=== PATIENT | male | born 1980 | race African-American/Black ===

== ENCOUNTER 2021-05-12 13:21 | Emergency (ER) | payer OTHER, SELFPAY ==
--- NOTE | ~2021-05-12 | XR_ITS ---
EXAMINATION: XR shoulder LT min 2V DATE: 05/12/2021 13:48 INDICATION: Left shoulder pain. TECHNIQUE: 4 views of left shoulder were obtained. COMPARISON: None. FINDINGS: Bone alignment is normal. No fracture. Joint spaces are normal. IMPRESSION: 1. Normal left shoulder. Reviewed, dictated and finalized at location A. IMPRESSION: 1. Normal left shoulder.
[2021-05-12 13:29] VITALS: BP 159/91; PULSE 80; RESP 18; TEMP 36.8; O2SAT 100
--- NOTE | 2021-05-12 14:08 | ED.EXTPRO ---
HPI - Extremity Problem General Chief complaint: Extremity Problem,Nontraumatic Stated complaint: left shoulder pain Time Seen by Provider: 05/12/21 13:34 Source: patient Mode of arrival: ambulatory Limitations: no limitations History of Present Illness HPI Narrative: Patient is a 41-year-old male who presents complaining of left shoulder pain. Patient reports shoulder pain has been increasing over the past week. 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 He denies numbness or tingling to arm, denies chest pain or shortness of breath. Patient denies significant medical history and reports he does not take any daily medication. Patient reports taking [id number] pain medications with moderate relief. MD Complaint: extremity pain Related Data Allergies Allergy/AdvReac Type Severity Reaction Status Date / Time No Known Allergies Allergy Verified 05/12/21 13:59 Review of Systems Review of Systems: Narrative: CONSTITUTIONAL: Denies fever, chills, or sweats. EYES: Denies visual changes, redness, or discharge. ENT: Denies rhinorrhea, congestion, sore throat, or otalgia. CARDIOVASCULAR: Denies chest pain, palpitations, or edema. RESPIRATORY: Denies cough or dyspnea. GASTROINTESTINAL: Denies abdominal pain, nausea, vomiting, or diarrhea. GENITOURINARY: Denies dysuria or hematuria. SKIN: Denies rash or itching. MUSCULOSKELETAL: Reports left shoulder pain NEUROLOGIC: Denies headache, numbness, dizziness, or weakness. PSYCHIATRIC: Denies anxiety or depression. [facility] Past Medical History Medical History No significant past medical history Surgical History Surgical History History of mandibular surgery Social History Social History (Updated 05/12/21 @ 14:35 by DONA Wheeler) Smoking status: Current every day smoker Tobacco type: cigarettes Alcohol intake: current Alcohol use details: Occasional Substance use: never Living arrangements: with family Occupation/Education: occupation Gender identity (if verbalized by the patient): Male Comments At the time of signature, I have reviewed and agree with nursing past medical, surgical, social, and family history unless otherwise noted. Please see nursing chart for further information. There is no relevant family history pertinent to the presenting complaint. Exam Narrative: Exam Narrative: GENERAL: Well-appearing, well-nourished, and in no acute distress. HEAD: Normocephalic, atraumatic. EYES: EOMI. No redness or drainage. Conjunctiva are normal. ENT: Mucous membranes pink and moist. CHEST: No respiratory distress. HEART: Regular rate and rhythm. EXTREMITIES: Normal range of motion. No edema or ecchymosis. SKIN: Warm, dry, no rash. NEURO: No focal deficits. Alert and oriented x3. Gait steady. PSYCH: Normal affect. No signs of depression or anxiety. Course Vital Signs Vital signs: Vital Signs Temperature 36.8 C 05/12/21 13:29 Pulse Rate 80 05/12/21 13:29 Respiratory Rate 18 05/12/21 13:29 Blood Pressure 159/91 H 05/12/21 13:29 Pulse Oximetry 100 05/12/21 13:29 Temperature 36.8 C 05/12/21 13:29 Pulse Rate 80 05/12/21 13:29 Respiratory Rate 18 05/12/21 13:29 Blood Pressure 159/91 H 05/12/21 13:29 Pulse Oximetry 100 05/12/21 13:29 Reviewed. Patient has been instructed to follow-up with his PCP regarding his blood pressure. MDM - Extremity (Nontraumatic) MDM Narrative Medical decision making narrative: Patient's x-ray shows no acute osseous injury of shoulder. Discussed with patient most likely soft tissue problem. Discussed rest, ice and use of NSAIDs and muscle relaxants for pain. Discussed following up with orthopedics. Patient's also requests PCP referral. Patient agrees with plan of care. Patient is stable for discharge
[2021-05-12] MEDS: KETOROLAC (*BKC) 60 MG/2 ML VIAL IM (14:42)
[2021-05-12] MEDS: CYCLOBENZAPRINE HCL 10 MG TABLET PO (14:42)
[2021-05-12 15:09] VITALS: BP 140/95; PULSE 65; RESP 14; O2SAT 98
== END 2021-05-12 15:09 | disposition home or self-care (01) ==
PROVIDERS: Emergency Provider Nurse Practitioner
DX: M25.512 Pain in left shoulder (principal); F17.210 Nicotine dependence, cigarettes, uncomplicated
CPT/HCPCS: 73030; 96372; 99283; A9270; J1885

== ENCOUNTER 2022-05-07 18:46 | Emergency (ER) | payer OTHER, SELFPAY ==
[2022-05-07 19:43] VITALS: BP 156/93; PULSE 74; RESP 16; TEMP 37.1; O2SAT 100
--- NOTE | 2022-05-07 20:40 | ED.URI ---
HPI - URI/Sore Throat General Chief Complaint: Upper Respiratory Infection Stated Complaint: sob Time Seen by Provider: 05/07/22 20:41 Source: patient, family, RN notes reviewed and old records reviewed Mode of arrival: ambulatory Limitations: no limitations History of Present Illness HPI Narrative: 42-year-old male who presents to [facility] care accompanied by who states he tested positive for COVID on the he continues to have a runny nose, some fever and cough has been taking NyQuil at night and wonders about the recommendations for returning to work. Reviewed CDC guidelines with patient and that normally quarantine for 5 days then masking for 5 days but must be fever free for 24 hours without use of medications to decrease fever before can return to work. Patient instructed that he may have a lingering cough related to COVID but concern if related to dyspnea and fevers. Patient has not had COVID or Flu shot. MD elicited complaint: fever, cough and rhinorrhea Pertinent past history: other (Covid positive 04/28/2022) Treatments prior to arrival: other (Nyquil) Related Data Home Medications Medication Instructions Recorded Confirmed No Home Medications 05/07/22 05/07/22 Allergies Allergy/AdvReac Type Severity Reaction Status Date / Time No Known Allergies Allergy Verified 06/10/21 10:56 Review of Systems Review of Systems: CONSTITUTIONAL: intermittent fever, no chills, or sweats. EYES: Denies visual changes, redness, or discharge. ENT: positive rhinorrhea, congestion, no sore throat, or otalgia. CARDIOVASCULAR: Denies chest pain, palpitations, or edema. RESPIRATORY: Positive cough denies acute dyspnea. GASTROINTESTINAL: Denies abdominal pain, nausea, vomiting, or diarrhea. GENITOURINARY: Denies dysuria or hematuria. SKIN: Denies rash or itching. MUSCULOSKELETAL: Denies back pain, joint pain, or myalgia. NEUROLOGIC: Denies headache, numbness, or weakness. PSYCHIATRIC: Denies anxiety or depression. All systems reviewed & are unremarkable except as noted in HPI and below PMFSH Past Medical History Medical History Claustrophobia Left shoulder pain No significant past medical history Sleep disorder Vision changes Weight gain Surgical History Surgical History History of mandibular surgery Family History Family History Other Cerebrovascular accident Hypertension Social History Social History Smoking packs per day: 1 Smoking cigarettes per day: 20.0 Years smoked: 25 Smoking pack-years: 25.00 Smoking status: Current every day smoker Tobacco type: cigarettes Alcohol intake: current Drinks per week: 2 Alcohol use details: Occasional Substance use: never Gender identity (if verbalized by the patient): Male Comments At time of signature agree with nursing documentation of past medical surgical, social and family history. There is no relevant family history pertinet to presenting complaint. Exam Narrative: GENERAL: Well-appearing, well-nourished, and in no acute distress. HEAD: Normocephalic, atraumatic. EYES: PERRLA and EOMI. ENT: Nares with minimal redness, clear rhinorrhea no epistaxis. Mucous membranes moist.TM's normal with good light reflex, throat pink with no lesions or tonsils swelling some post nasal drainage NECK: Supple. no lymphadenopathy CHEST: Clear to auscultation. No respiratory distress.cough no tachypnea noted speaks in full sentences, SAO2 100% on room air. HEART: Regular rate and rhythm. No murmur heard. Normal peripheral pulses. ABDOMEN: Soft, nontender, nondistended, normal active bowel sounds. EXTREMITIES: Normal range of motion. No edema. SKIN: Warm, dry, no rash. NEURO: No focal deficits. Alert and oriented x3. Course Course Level
== END 2022-05-07 21:07 | disposition home or self-care (01) ==
PROVIDERS: Emergency Provider Registered Nurse
DX: J06.9 Acute upper respiratory infection, unspecified (principal); F17.210 Nicotine dependence, cigarettes, uncomplicated; Z86.16 Personal history of COVID-19
CPT/HCPCS: 99211; G0463